=== PATIENT | male | born 1970 | race Caucasian/White ===

== ENCOUNTER 2016-11-09 19:51 | Inpatient (IN) | payer SELFPAY ==
[~2016-11-09 19:51] MED LIST: NO HOME MEDS; ZITHROMAX250 M1 PO
[2016-11-09 20:03] LABS: BASO % 0.5 % (0-2); BASO ABSOLUTE COUNT 0.1 tho/cmm (0.0-0.2); EOS % 1.7 % (0-7); EOSINOPHIL ABSOLUTE COUNT 0.3 tho/cmm (0.0-0.7); IMMATURE GRANULOCYTES ABSOLUTE 0.28 tho/cmm (0-0.03); IMMATURE GRANULOCYTES PERCENT 1.9 % (0-0.3); LYMPH % 18.4 % (20-45); LYMPH ABSOLUTE COUNT 2.8 tho/cmm (0.8-4.5); MCH (MEAN CORPUSCULAR HGB) 30.5 pg (28.0-32.0); MCHC MEAN CORPUSCULAR HGB CONC 34.1 % (32.0-36.0); MCV (MEAN CELL VOLUME) 89.3 fl (82.0-96.0); MONO % 4.9 % (0-12); MONOCYTE ABSOLUTE COUNT 0.7 tho/cmm (0.0-1.2); NEUTROPHIL ABSOLUTE COUNT 10.9 tho/cmm (1.6-8.0); NEUTROPHIL-AUTOMATED 10.9 tho/cmm (1.6-8.0); NEUTROPHILS % 72.6 % (40-80); PLATELET COUNT 306 tho/cmm (150-450); RED BLOOD COUNT 4.59 mil/cmm (4.40-5.70); RED CELL DISTRIBUTION WIDTH 13.4 % (12.4-16.4)
[2016-11-09 20:09] LABS: INR 1.1 INR (0.9-1.1); PROTHROMBIN TIME 13.3 SECONDS (9.0-13.6)
[2016-11-09 20:23] LABS: ALB/GLOB RATIO 0.9 (0.8-2.0); ALKALINE PHOSPHATASE 83 U/L (33-138); ALT/SGPT 27 U/L (12-78); ANION GAP 15 mmol/L (0-20); AST/SGOT 25 U/L (10-40); BILIRUBIN,TOTAL 0.3 mg/dl (0.0-1.5); BLOOD UREA NITROGEN 9 mg/dl (6-24); CALCIUM 7.4 mg/dl (8.5-10.5); CARBON DIOXIDE-VENOUS 22 mmol/L (22-32); CHLORIDE 104 mmol/l (96-110); CREATININE 0.96 mg/dl (0.60-1.30); GLUCOSE 184 mg/dL (70-110); SODIUM 138 mmol/L (135-145); eGFR VALUE FOR BLACK >90 mL/Min
[2016-11-09 20:30] LABS: URINE APPEARANCE HAZY; URINE BILIRUBIN NEGATIVE (NEG); URINE BLOOD LARGE (NEG); URINE COLOR YELLOW; URINE GLUCOSE (UA) MODERATE (NEG); URINE KETONE NEGATIVE (NEG); URINE LEUKOCYTE ESTERASE NEGATIVE (NEG); URINE NITRITE NEGATIVE (NEG); URINE PH 6.5 (5.0-8.0); URINE PROTEIN LARGE (NEG)
[2016-11-09 20:33] LABS: ALCOHOL (ETOH) <10 mg/dl (<10); MAGNESIUM 1.9 mg/dl (1.8-2.6)
[2016-11-09 20:34] LABS: URINE AMORPHOUS 3+; URINE MUCUS 1+
[2016-11-09 20:35] LABS: URINE RBC 90-120 /[HPF] (0-5)
[2016-11-09 20:45] LABS: ABG CO2 ARTERIAL 26 mmol/L (21-27); ARTERIAL BLD GAS O2 SATURATION 100 % (95-98); ARTERIAL BLOOD GAS PCO2 60 mmHg (32-45); ARTERIAL PO2 521 mmHg (70-100); BICARBONATE 25 mmol/L (21-28); BLOOD GAS BASE EXCESS -4 mM/L (-/+3); PH 7.23 Units (7.35-7.45)
[2016-11-09 23:23] LABS: ABG CO2 ARTERIAL 24 mmol/L (21-27); ARTERIAL BLD GAS O2 SATURATION 100 % (95-98); ARTERIAL BLOOD GAS PCO2 47 mmHg (32-45); ARTERIAL PO2 353 mmHg (70-100); BICARBONATE 22 mmol/L (21-28); BLOOD GAS BASE EXCESS -4 mM/L (-/+3); PH 7.29 Units (7.35-7.45)
[2016-11-10 01:04] LABS: PH 7.13 Units (7.35-7.45)
[2016-11-10 01:05] LABS: ABG CO2 ARTERIAL 18 mmol/L (21-27); ARTERIAL BLD GAS O2 SATURATION 99 % (95-98); ARTERIAL BLOOD GAS PCO2 60 mmHg (32-45); ARTERIAL PO2 208 mmHg (70-100); BICARBONATE 20 mmol/L (21-28); BLOOD GAS BASE EXCESS -11 mM/L (-/+3)
[2016-11-10 01:20] LABS: MAGNESIUM 1.9 mg/dl (1.8-2.6); PHOSPHOROUS 3.6 mg/dl (2.5-4.9); POTASSIUM 3.9 mmol/L (3.7-5.1)
[2016-11-10 01:25] LABS: CKMB 40.7 ng/ml (<3.6)
[2016-11-10 05:11] LABS: ARTERIAL BLD GAS O2 SATURATION 100 % (95-98); ARTERIAL BLOOD GAS PCO2 26 mmHg (32-45); ARTERIAL PO2 143 mmHg (70-100); PH 7.51 Units (7.35-7.45)
[2016-11-10 05:12] LABS: ABG CO2 ARTERIAL 23 mmol/L (21-27); BICARBONATE 22 mmol/L (21-28); BLOOD GAS BASE EXCESS -1 mM/L (-/+3)
[2016-11-10 07:01] LABS: BLOOD UREA NITROGEN 15 mg/dl (6-24); CALCIUM 7.3 mg/dl (8.5-10.5); CARBON DIOXIDE-VENOUS 21 mmol/L (22-32); CHLORIDE 108 mmol/l (96-110); CREATININE 0.94 mg/dl (0.60-1.30); GLUCOSE 209 mg/dL (70-110); MAGNESIUM 2.2 mg/dl (1.8-2.6); SODIUM 141 mmol/L (135-145); eGFR VALUE FOR BLACK >90 mL/Min
[2016-11-10 08:29] LABS: BLOOD UREA NITROGEN 15 mg/dl (6-24); CALCIUM 7.5 mg/dl (8.5-10.5); CARBON DIOXIDE-VENOUS 19 mmol/L (22-32); CHLORIDE 106 mmol/l (96-110); CREATININE 1.03 mg/dl (0.60-1.30); GLUCOSE 235 mg/dL (70-110); MAGNESIUM 2.2 mg/dl (1.8-2.6); SODIUM 140 mmol/L (135-145); eGFR VALUE FOR BLACK >90 mL/Min
[2016-11-10 08:45] LABS: ANION GAP 15 mmol/L (0-20)
[2016-11-10 08:46] LABS: CKMB 50.8 ng/ml (<3.6); PHOSPHOROUS 0.6 mg/dl (2.5-4.9)
[2016-11-10 08:47] LABS: POTASSIUM 2.6 mmol/L (3.7-5.1)
[2016-11-10 08:48] LABS: ANION GAP 18 mmol/L (0-20); CKMB 54.3 ng/ml (<3.6); PHOSPHOROUS 0.7 mg/dl (2.5-4.9); POTASSIUM 2.5 mmol/L (3.7-5.1)
[2016-11-10 09:14] LABS: ABG CO2 ARTERIAL 19 mmol/L (21-27); ARTERIAL BLD GAS O2 SATURATION 95 % (95-98); ARTERIAL BLOOD GAS PCO2 39 mmHg (32-45); ARTERIAL PO2 86 mmHg (70-100); BICARBONATE 18 mmol/L (21-28); BLOOD GAS BASE EXCESS -8 mM/L (-/+3); PH 7.29 Units (7.35-7.45)
[2016-11-10 12:27] LABS: MAGNESIUM 2.3 mg/dl (1.8-2.6); PHOSPHOROUS 1.3 mg/dl (2.5-4.9)
[2016-11-10 12:44] LABS: POTASSIUM 3.5 mmol/L (3.7-5.1)
[2016-11-10 18:29] LABS: BASO % 0.1 % (0-2); EOS % 0.1 % (0-7); HGB-HEMOGLOBIN 13.6 gm/dl (13.5-17.0); IMMATURE GRANULOCYTES ABSOLUTE 0.05 tho/cmm (0-0.03); IMMATURE GRANULOCYTES PERCENT 0.3 % (0-0.3); LYMPH % 3.9 % (20-45); LYMPH ABSOLUTE COUNT 0.7 tho/cmm (0.8-4.5); MCH (MEAN CORPUSCULAR HGB) 30.7 pg (28.0-32.0); MCHC MEAN CORPUSCULAR HGB CONC 34.9 % (32.0-36.0); MEAN PLATELET VOLUME 9.3 cmc (9.4-12.4); MONO % 6.8 % (0-12); MONOCYTE ABSOLUTE COUNT 1.2 tho/cmm (0.0-1.2); NEUTROPHILS % 88.8 % (40-80); PLATELET COUNT 305 tho/cmm (150-450); RED BLOOD COUNT 4.43 mil/cmm (4.40-5.70); RED CELL DISTRIBUTION WIDTH 13.6 % (12.4-16.4); WHITE BLOOD COUNT 16.9 tho/cmm (4.0-10.0)
[2016-11-10 18:35] LABS: INR 1.3 INR (0.9-1.1); PROTHROMBIN TIME 14.7 SECONDS (9.0-13.6)
[2016-11-10 18:56] LABS: MAGNESIUM 1.8 mg/dl (1.8-2.6); PHOSPHOROUS 2.1 mg/dl (2.5-4.9); POTASSIUM 3.4 mmol/L (3.7-5.1)
[2016-11-10 18:57] LABS: CKMB 63.3 ng/ml (<3.6)
[2016-11-11 00:44] LABS: CKMB 61.9 ng/ml (<3.6); MAGNESIUM 2.2 mg/dl (1.8-2.6); PHOSPHOROUS 2.8 mg/dl (2.5-4.9)
[2016-11-11 03:57] LABS: BASO % 0.1 % (0-2); EOS % 0.1 % (0-7); HCT-HEMATOCRIT 39.8 % (36.0-53.5); HGB-HEMOGLOBIN 13.7 gm/dl (13.5-17.0); IMMATURE GRANULOCYTES ABSOLUTE 0.07 tho/cmm (0-0.03); IMMATURE GRANULOCYTES PERCENT 0.4 % (0-0.3); LYMPH % 4.3 % (20-45); LYMPH ABSOLUTE COUNT 0.8 tho/cmm (0.8-4.5); MCH (MEAN CORPUSCULAR HGB) 30.2 pg (28.0-32.0); MCHC MEAN CORPUSCULAR HGB CONC 34.4 % (32.0-36.0); MCV (MEAN CELL VOLUME) 87.7 fl (82.0-96.0); MEAN PLATELET VOLUME 9.3 cmc (9.4-12.4); MONO % 5.6 % (0-12); MONOCYTE ABSOLUTE COUNT 1.1 tho/cmm (0.0-1.2); NEUTROPHIL ABSOLUTE COUNT 17.1 tho/cmm (1.6-8.0); NEUTROPHIL-AUTOMATED 17.1 tho/cmm (1.6-8.0); NEUTROPHILS % 89.5 % (40-80); PLATELET COUNT 331 tho/cmm (150-450); RED BLOOD COUNT 4.54 mil/cmm (4.40-5.70); RED CELL DISTRIBUTION WIDTH 13.9 % (12.4-16.4); WHITE BLOOD COUNT 19.1 tho/cmm (4.0-10.0)
[2016-11-11 04:58] LABS: ARTERIAL BLD GAS O2 SATURATION 93 % (95-98); ARTERIAL BLOOD GAS PCO2 43 mmHg (32-45); BICARBONATE 22 mmol/L (21-28); BLOOD GAS BASE EXCESS -3 mM/L (-/+3); PH 7.33 Units (7.35-7.45)
[2016-11-11 04:59] LABS: ABG CO2 ARTERIAL 24 mmol/L (21-27); ARTERIAL PO2 70 mmHg (70-100)
[2016-11-11 06:22] LABS: PHOSPHOROUS 2.7 mg/dl (2.5-4.9); POTASSIUM 4.5 mmol/L (3.7-5.1)
[2016-11-11 06:36] LABS: CKMB 54.9 ng/ml (<3.6)
[2016-11-11 12:22] LABS: MAGNESIUM 2.1 mg/dl (1.8-2.6); PHOSPHOROUS 2.4 mg/dl (2.5-4.9); POTASSIUM 4.8 mmol/L (3.7-5.1)
[2016-11-11 12:27] LABS: CKMB 38.4 ng/ml (<3.6)
[2016-11-11 17:59] LABS: MAGNESIUM 1.9 mg/dl (1.8-2.6); PHOSPHOROUS 2.5 mg/dl (2.5-4.9)
[2016-11-11 18:02] LABS: CKMB 25.5 ng/ml (<3.6)
[2016-11-11 23:13] LABS: BASO % 0.1 % (0-2); EOS % 0.1 % (0-7); HCT-HEMATOCRIT 33.2 % (36.0-53.5); IMMATURE GRANULOCYTES ABSOLUTE 0.04 tho/cmm (0-0.03); IMMATURE GRANULOCYTES PERCENT 0.3 % (0-0.3); LYMPH % 7.7 % (20-45); LYMPH ABSOLUTE COUNT 1.2 tho/cmm (0.8-4.5); MCH (MEAN CORPUSCULAR HGB) 29.8 pg (28.0-32.0); MCHC MEAN CORPUSCULAR HGB CONC 33.1 % (32.0-36.0); MEAN PLATELET VOLUME 9.6 cmc (9.4-12.4); MONO % 6.1 % (0-12); NEUTROPHIL ABSOLUTE COUNT 13.4 tho/cmm (1.6-8.0); NEUTROPHIL-AUTOMATED 13.4 tho/cmm (1.6-8.0); NEUTROPHILS % 85.7 % (40-80); PLATELET COUNT 299 tho/cmm (150-450); RED BLOOD COUNT 3.69 mil/cmm (4.40-5.70); RED CELL DISTRIBUTION WIDTH 14.5 % (12.4-16.4); WHITE BLOOD COUNT 15.6 tho/cmm (4.0-10.0)
[2016-11-12 04:02] LABS: BASO % 0.1 % (0-2); EOS % 0.1 % (0-7); HCT-HEMATOCRIT 32.7 % (36.0-53.5); HGB-HEMOGLOBIN 10.7 gm/dl (13.5-17.0); IMMATURE GRANULOCYTES ABSOLUTE 0.04 tho/cmm (0-0.03); IMMATURE GRANULOCYTES PERCENT 0.3 % (0-0.3); LYMPH % 7.5 % (20-45); LYMPH ABSOLUTE COUNT 1.1 tho/cmm (0.8-4.5); MCH (MEAN CORPUSCULAR HGB) 29.6 pg (28.0-32.0); MCHC MEAN CORPUSCULAR HGB CONC 32.7 % (32.0-36.0); MCV (MEAN CELL VOLUME) 90.3 fl (82.0-96.0); MEAN PLATELET VOLUME 9.7 cmc (9.4-12.4); MONO % 7.9 % (0-12); MONOCYTE ABSOLUTE COUNT 1.2 tho/cmm (0.0-1.2); NEUTROPHIL ABSOLUTE COUNT 12.5 tho/cmm (1.6-8.0); NEUTROPHIL-AUTOMATED 12.5 tho/cmm (1.6-8.0); NEUTROPHILS % 84.1 % (40-80); PLATELET COUNT 291 tho/cmm (150-450); RED BLOOD COUNT 3.62 mil/cmm (4.40-5.70); RED CELL DISTRIBUTION WIDTH 14.5 % (12.4-16.4); WHITE BLOOD COUNT 14.9 tho/cmm (4.0-10.0)
[2016-11-12 04:07] LABS: BLOOD UREA NITROGEN 16 mg/dl (6-24); CALCIUM 7.6 mg/dl (8.5-10.5); CARBON DIOXIDE-VENOUS 25 mmol/L (22-32); CHLORIDE 111 mmol/l (96-110); CREATININE 0.56 mg/dl (0.60-1.30); PHOSPHOROUS 2.1 mg/dl (2.5-4.9); SODIUM 140 mmol/L (135-145); eGFR VALUE FOR BLACK >90 mL/Min
[2016-11-12 04:09] LABS: ANION GAP 10 mmol/L (0-20); GLUCOSE 88 mg/dL (70-110); MAGNESIUM 2.1 mg/dl (1.8-2.6); POTASSIUM 5.5 mmol/L (3.7-5.1)
[2016-11-12 04:42] LABS: ABG CO2 ARTERIAL 24 mmol/L (21-27); ARTERIAL BLD GAS O2 SATURATION 97 % (95-98); ARTERIAL BLOOD GAS PCO2 38 mmHg (32-45); BICARBONATE 23 mmol/L (21-28); BLOOD GAS BASE EXCESS -1 mM/L (-/+3)
[2016-11-12 04:44] LABS: ARTERIAL PO2 90 mmHg (70-100)
[2016-11-12 14:06] LABS: ANION GAP 10 mmol/L (0-20); BLOOD UREA NITROGEN 17 mg/dl (6-24); CALCIUM 7.3 mg/dl (8.5-10.5); CARBON DIOXIDE-VENOUS 26 mmol/L (22-32); CHLORIDE 109 mmol/l (96-110); GLUCOSE 110 mg/dL (70-110); SODIUM 141 mmol/L (135-145); eGFR VALUE FOR BLACK >90 mL/Min
[2016-11-12 14:08] LABS: POTASSIUM 3.8 mmol/L (3.7-5.1)
[2016-11-12 21:36] LABS: URINE BILIRUBIN NEGATIVE (NEG); URINE BLOOD NEGATIVE (NEG); URINE GLUCOSE (UA) NEGATIVE (NEG); URINE KETONE NEGATIVE (NEG); URINE LEUKOCYTE ESTERASE POSITIVE (NEG); URINE NITRITE NEGATIVE (NEG); URINE PROTEIN SMALL (NEG); URINE SPECIFIC GRAVITY 1.015 (1.003-1.030)
[2016-11-12 21:37] LABS: URINE APPEARANCE HAZY; URINE COLOR YELLOW
[2016-11-12 21:45] LABS: URINE AMORPHOUS 1+; URINE EPITHELIAL CELLS RARE /[HPF] (0-10); URINE MUCUS 1+; URINE RBC RARE /[HPF] (0-5)
[2016-11-13 04:48] LABS: ABG CO2 ARTERIAL 28 mmol/L (21-27); ARTERIAL BLD GAS O2 SATURATION 97 % (95-98); ARTERIAL BLOOD GAS PCO2 42 mmHg (32-45); ARTERIAL PO2 81 mmHg (70-100); BICARBONATE 27 mmol/L (21-28); BLOOD GAS BASE EXCESS 2 mM/L (-/+3); PH 7.42 Units (7.35-7.45)
[2016-11-13 05:08] LABS: BASO % 0.2 % (0-2); EOS % 0.3 % (0-7); HCT-HEMATOCRIT 25.7 % (36.0-53.5); HGB-HEMOGLOBIN 8.6 gm/dl (13.5-17.0); IMMATURE GRANULOCYTES ABSOLUTE 0.02 tho/cmm (0-0.03); IMMATURE GRANULOCYTES PERCENT 0.2 % (0-0.3); LYMPH % 11.5 % (20-45); MCH (MEAN CORPUSCULAR HGB) 30.3 pg (28.0-32.0); MCHC MEAN CORPUSCULAR HGB CONC 33.5 % (32.0-36.0); MCV (MEAN CELL VOLUME) 90.5 fl (82.0-96.0); MEAN PLATELET VOLUME 9.7 cmc (9.4-12.4); MONO % 8.2 % (0-12); MONOCYTE ABSOLUTE COUNT 0.7 tho/cmm (0.0-1.2); NEUTROPHIL ABSOLUTE COUNT 7.2 tho/cmm (1.6-8.0); NEUTROPHIL-AUTOMATED 7.2 tho/cmm (1.6-8.0); NEUTROPHILS % 79.6 % (40-80); PLATELET COUNT 225 tho/cmm (150-450); RED BLOOD COUNT 2.84 mil/cmm (4.40-5.70); RED CELL DISTRIBUTION WIDTH 14.8 % (12.4-16.4); WHITE BLOOD COUNT 9.1 tho/cmm (4.0-10.0)
[2016-11-13 05:16] LABS: ALB/GLOB RATIO 0.7 (0.8-2.0); ALBUMIN 2.2 g/dl (3.5-5.0); ALKALINE PHOSPHATASE 63 U/L (33-138); ALT/SGPT 25 U/L (12-78); ANION GAP 10 mmol/L (0-20); AST/SGOT 50 U/L (10-40); BILIRUBIN,TOTAL 0.3 mg/dl (0.0-1.5); BLOOD UREA NITROGEN 16 mg/dl (6-24); CALCIUM 7.3 mg/dl (8.5-10.5); CARBON DIOXIDE-VENOUS 27 mmol/L (22-32); CHLORIDE 108 mmol/l (96-110); CREATININE 0.57 mg/dl (0.60-1.30); GLUCOSE 105 mg/dL (70-110); POTASSIUM 3.8 mmol/L (3.7-5.1); SODIUM 141 mmol/L (135-145); eGFR VALUE FOR BLACK >90 mL/Min
[2016-11-14 04:40] LABS: BASO % 0.3 % (0-2); EOS % 0.6 % (0-7); EOSINOPHIL ABSOLUTE COUNT 0.1 tho/cmm (0.0-0.7); HCT-HEMATOCRIT 26.2 % (36.0-53.5); HGB-HEMOGLOBIN 8.6 gm/dl (13.5-17.0); IMMATURE GRANULOCYTES ABSOLUTE 0.04 tho/cmm (0-0.03); IMMATURE GRANULOCYTES PERCENT 0.3 % (0-0.3); LYMPH % 6.9 % (20-45); LYMPH ABSOLUTE COUNT 0.8 tho/cmm (0.8-4.5); MCH (MEAN CORPUSCULAR HGB) 30.1 pg (28.0-32.0); MCHC MEAN CORPUSCULAR HGB CONC 32.8 % (32.0-36.0); MCV (MEAN CELL VOLUME) 91.6 fl (82.0-96.0); MEAN PLATELET VOLUME 9.5 cmc (9.4-12.4); MONO % 7.5 % (0-12); MONOCYTE ABSOLUTE COUNT 0.9 tho/cmm (0.0-1.2); NEUTROPHIL ABSOLUTE COUNT 9.7 tho/cmm (1.6-8.0); NEUTROPHIL-AUTOMATED 9.7 tho/cmm (1.6-8.0); NEUTROPHILS % 84.4 % (40-80); PLATELET COUNT 218 tho/cmm (150-450); RED BLOOD COUNT 2.86 mil/cmm (4.40-5.70); RED CELL DISTRIBUTION WIDTH 15.3 % (12.4-16.4); WHITE BLOOD COUNT 11.5 tho/cmm (4.0-10.0)
[2016-11-14 05:01] LABS: PHOSPHOROUS 4.1 mg/dl (2.5-4.9)
[2016-11-14 05:27] LABS: ALB/GLOB RATIO 0.6 (0.8-2.0); ALBUMIN 2.1 g/dl (3.5-5.0); ALKALINE PHOSPHATASE 66 U/L (33-138); ALT/SGPT 25 U/L (12-78); ANION GAP 13 mmol/L (0-20); AST/SGOT 40 U/L (10-40); BILIRUBIN,TOTAL 0.3 mg/dl (0.0-1.5); BLOOD UREA NITROGEN 15 mg/dl (6-24); CALCIUM 7.5 mg/dl (8.5-10.5); CARBON DIOXIDE-VENOUS 26 mmol/L (22-32); CHLORIDE 109 mmol/l (96-110); CREATININE 0.71 mg/dl (0.60-1.30); GLUCOSE 144 mg/dL (70-110); SODIUM 143 mmol/L (135-145); eGFR VALUE FOR BLACK >90 mL/Min
[2016-11-14 05:36] LABS: POTASSIUM 4.8 mmol/L (3.7-5.1)
[2016-11-14 05:43] LABS: ABG CO2 ARTERIAL 28 mmol/L (21-27); ARTERIAL BLD GAS O2 SATURATION 96 % (95-98); ARTERIAL BLOOD GAS PCO2 47 mmHg (32-45); ARTERIAL PO2 79 mmHg (70-100); BICARBONATE 27 mmol/L (21-28); BLOOD GAS BASE EXCESS 2 mM/L (-/+3); PH 7.38 Units (7.35-7.45)
[2016-11-15 11:32] LABS: ABG CO2 ARTERIAL 29 mmol/L (21-27); ARTERIAL BLD GAS O2 SATURATION 98 % (95-98); ARTERIAL BLOOD GAS PCO2 40 mmHg (32-45); ARTERIAL PO2 98 mmHg (70-100); BICARBONATE 28 mmol/L (21-28); BLOOD GAS BASE EXCESS 4 mM/L (-/+3); PH 7.45 Units (7.35-7.45)
[2016-11-15 12:01] LABS: ALB/GLOB RATIO 0.6 (0.8-2.0); ALBUMIN 2.1 g/dl (3.5-5.0); ALKALINE PHOSPHATASE 67 U/L (33-138); ALT/SGPT 29 U/L (12-78); ANION GAP 12 mmol/L (0-20); AST/SGOT 33 U/L (10-40); BLOOD UREA NITROGEN 20 mg/dl (6-24); CALCIUM 7.6 mg/dl (8.5-10.5); CARBON DIOXIDE-VENOUS 28 mmol/L (22-32); CHLORIDE 107 mmol/l (96-110); CREATININE 0.53 mg/dl (0.60-1.30); GLUCOSE 182 mg/dL (70-110); MAGNESIUM 1.8 mg/dl (1.8-2.6); PHOSPHOROUS 2.6 mg/dl (2.5-4.9); SODIUM 143 mmol/L (135-145); eGFR VALUE FOR BLACK >90 mL/Min
[2016-11-15 12:02] LABS: POTASSIUM 3.6 mmol/L (3.7-5.1)
[2016-11-15 12:05] LABS: BILIRUBIN,TOTAL 0.3 mg/dl (0.0-1.5)
[2016-11-15 14:51] LABS: BASO % 0.4 % (0-2); EOS % 0.8 % (0-7); EOSINOPHIL ABSOLUTE COUNT 0.1 tho/cmm (0.0-0.7); HCT-HEMATOCRIT 24.3 % (36.0-53.5); HGB-HEMOGLOBIN 7.9 gm/dl (13.5-17.0); IMMATURE GRANULOCYTES ABSOLUTE 0.03 tho/cmm (0-0.03); IMMATURE GRANULOCYTES PERCENT 0.4 % (0-0.3); LYMPH % 11.5 % (20-45); LYMPH ABSOLUTE COUNT 0.8 tho/cmm (0.8-4.5); MCH (MEAN CORPUSCULAR HGB) 29.8 pg (28.0-32.0); MCHC MEAN CORPUSCULAR HGB CONC 32.5 % (32.0-36.0); MCV (MEAN CELL VOLUME) 91.7 fl (82.0-96.0); MEAN PLATELET VOLUME 10.1 cmc (9.4-12.4); MONO % 12.9 % (0-12); MONOCYTE ABSOLUTE COUNT 0.9 tho/cmm (0.0-1.2); NEUTROPHIL ABSOLUTE COUNT 5.3 tho/cmm (1.6-8.0); NEUTROPHIL-AUTOMATED 5.3 tho/cmm (1.6-8.0); PLATELET COUNT 236 tho/cmm (150-450); RED BLOOD COUNT 2.65 mil/cmm (4.40-5.70); RED CELL DISTRIBUTION WIDTH 15.6 % (12.4-16.4); WHITE BLOOD COUNT 7.2 tho/cmm (4.0-10.0)
[2016-11-16 04:26] LABS: ABG CO2 ARTERIAL 30 mmol/L (21-27); ARTERIAL BLD GAS O2 SATURATION 98 % (95-98); ARTERIAL BLOOD GAS PCO2 45 mmHg (32-45); BICARBONATE 29 mmol/L (21-28); BLOOD GAS BASE EXCESS 4 mM/L (-/+3); PH 7.42 Units (7.35-7.45)
[2016-11-16 04:32] LABS: ARTERIAL PO2 114 mmHg (70-100)
[2016-11-17 04:26] LABS: BASO % 0.6 % (0-2); EOS % 2.2 % (0-7); EOSINOPHIL ABSOLUTE COUNT 0.2 tho/cmm (0.0-0.7); HCT-HEMATOCRIT 24.7 % (36.0-53.5); HGB-HEMOGLOBIN 7.8 gm/dl (13.5-17.0); IMMATURE GRANULOCYTES ABSOLUTE 0.05 tho/cmm (0-0.03); IMMATURE GRANULOCYTES PERCENT 0.7 % (0-0.3); LYMPH % 13.9 % (20-45); MCH (MEAN CORPUSCULAR HGB) 29.5 pg (28.0-32.0); MCHC MEAN CORPUSCULAR HGB CONC 31.6 % (32.0-36.0); MCV (MEAN CELL VOLUME) 93.6 fl (82.0-96.0); MEAN PLATELET VOLUME 9.4 cmc (9.4-12.4); MONO % 12.2 % (0-12); MONOCYTE ABSOLUTE COUNT 0.9 tho/cmm (0.0-1.2); NEUTROPHILS % 70.4 % (40-80); PLATELET COUNT 301 tho/cmm (150-450); RED BLOOD COUNT 2.64 mil/cmm (4.40-5.70); RED CELL DISTRIBUTION WIDTH 15.9 % (12.4-16.4); WHITE BLOOD COUNT 7.1 tho/cmm (4.0-10.0)
[2016-11-17 04:38] LABS: ALB/GLOB RATIO 0.5 (0.8-2.0); ALKALINE PHOSPHATASE 72 U/L (33-138); ALT/SGPT 27 U/L (12-78); ANION GAP 10 mmol/L (0-20); AST/SGOT 22 U/L (10-40); BILIRUBIN,TOTAL 0.3 mg/dl (0.0-1.5); BLOOD UREA NITROGEN 21 mg/dl (6-24); CALCIUM 7.6 mg/dl (8.5-10.5); CARBON DIOXIDE-VENOUS 32 mmol/L (22-32); CHLORIDE 107 mmol/l (96-110); CREATININE 0.51 mg/dl (0.60-1.30); GLUCOSE 160 mg/dL (70-110); POTASSIUM 3.4 mmol/L (3.7-5.1); SODIUM 146 mmol/L (135-145); eGFR VALUE FOR BLACK >90 mL/Min
[2016-11-17 04:59] LABS: ABG CO2 ARTERIAL 33 mmol/L (21-27); ARTERIAL BLD GAS O2 SATURATION 98 % (95-98); ARTERIAL BLOOD GAS PCO2 50 mmHg (32-45); ARTERIAL PO2 112 mmHg (70-100); BICARBONATE 32 mmol/L (21-28); BLOOD GAS BASE EXCESS 7 mM/L (-/+3); PH 7.42 Units (7.35-7.45)
[2016-11-17 05:08] LABS: PROCALCITONIN 0.15 ng/ml (0.05-0.09)
--- NOTE | 2016-11-19 15:03 | NUR ---
0815 MOM LEAVES TO TAKE A SHOWER, 1000 CALLED TO MOM AND LEFT MESSAGE THAT HE WAS CHANGING AND RESP RATE UP AND BP DOWN. 1030 MOM BACK AND MORE AGONAL RESPERATIONS, HOSPICE CALLED AND PA HERE AND 1055 PT HEART RATE STOPPED AND NO BREATHING, PUPILS DILATED AND FIXED. WITNESS A [employer] FROM HOSPICE AND SAIMA RN. CALLED TO [facility] AND NOTIFIED OF , AND THEN CALLED TO POLICE REQUESTED, TALKED SEVERAL TIMES TO [place] AND PER MELA AND COORDINATOR. PT NOT A CANDIDATE FOR TISSUE AND THEN CALL FROM [facility] NOT A DONOR FOR EYES EITHER AT THIS TIME. CALLED TO [facility] AND WILL BE PICKED UP, AFTER CHECKING AGAIN WITH POLICE DEPT AND NO CALL BACK SO BODY RELEASED AFTER 1 HR TIME.
== END 2016-11-19 10:55 | disposition expired ==
LOC: EDMED 19:51 → EMR2 21:32 → CCU 22:20
PROVIDERS: Emergency Medicine; Internal Medicine; Internal Medicine Cardiovascular Disease; Internal Medicine Critical Care Medicine; Nurse Practitioner Family; ADMIT Internal Medicine Cardiovascular Disease
PROC: 5A1955Z Respiratory Ventilation, Greater than 96 Consecutive Hours (ICD-10-PCS; principal; 2016-11-09)
PROC: 0BH17EZ Insertion of Endotracheal Airway into Trachea, Via Natural or Artificial Opening (ICD-10-PCS; 2016-11-09)
PROC: 02HV33Z Insertion of Infusion Device into Superior Vena Cava, Percutaneous Approach (ICD-10-PCS; 2016-11-12)
DX: I49.01 Ventricular fibrillation (principal); J96.01 Acute respiratory failure with hypoxia; I21.3 ST elevation (STEMI) myocardial infarction of unspecified site; G93.40 Encephalopathy, unspecified; E87.2 Acidosis; Z72.0 Tobacco use; E87.6 Hypokalemia; F12.10 Cannabis abuse, uncomplicated; R57.0 Cardiogenic shock
CPT/HCPCS: A9577; C1751; C1760; C1769; C1874; C1887; C8924; C8929; C9113; C9606-LD; G0009; G0480; J0171; J0360; J0461; J0583; J0610; J1265; J1644; J1650; J1815; J1940; J1953; J2060; J2175; J2250; J2270; J2543; J2704; J3010; J3475; J3480; J7030; J7040; J7050; L4396; P9045; Q2009; Q9967